=== PATIENT | male | born 1975 | race Hispanic/Latino ===

== ENCOUNTER 2016-12-11 22:30 | Emergency (ER) | payer SELFPAY ==
--- NOTE | 2016-12-11 23:56 | RAD ---
PORTABLE CHEST 12/11/16 An AP portable film at 2252 is compared with a 12/31/12 study. The heart is normal in size and the lungs are clear. No lobar consolidation or effusion is seen. The re is no edema. The appearance of the chest is similar to the prior study. IMPRESSION: No definite acute finding. POS: HOME
== END 2016-12-11 23:23 | disposition home or self-care (01) ==
LOC: BURERS 22:30
DX: R07.9 Chest pain, unspecified (principal)
CPT/HCPCS: 71010; 93005

== ENCOUNTER 2019-09-03 16:04 | Emergency (ER) | payer BC, SELFPAY ==
[2019-09-03] MEDS ORDERED: Adacel (T-DAP) 0.5 ML SYRINGE ONE (16:51)
--- NOTE | 2019-09-03 17:52 | RAD ---
LEFT INDEX FINGER THREE VIEWS: 09/03/19 There is a comminuted fracture of the terminal tuft of the distal phalanx of the index finger. Addit ionally, there is an opaque metallic foreign body in the soft tissues on the palmar aspect of the DIP joint. The proximal portions of the finger appear intact. IMPRESSION: Comminuted fracture of the distal phalanx of the index finger with foreign body in soft tissues. POS: HOME
== END 2019-09-03 16:55 | disposition home or self-care (01) ==
LOC: BURERS 16:04
DX: S62.631A Displaced fracture of distal phalanx of left index finger, initial encounter for closed fracture (principal); S60.122A Contusion of left index finger with damage to nail, initial encounter; Z23 Encounter for immunization; W45.0XXA Nail entering through skin, initial encounter
CPT/HCPCS: 11740; 90471; 90715; Q4049